=== PATIENT | male | born 1980 | race Caucasian/White ===

== ENCOUNTER 2017-10-21 13:00 | Outpatient (RCR) | payer OTHER, SELFPAY ==
--- NOTE | 2017-10-04 10:53 | HMH.PTOPEV ---
Rehab Outpatient Evaluation Rehab OP Evaluation Start: 10/04/17 10:22 Freq: Status: Active Protocol: Document 10/04/17 10:23 TFRY (Rec: 10/04/17 10:53 TFRY [id number]) Electronically Signed By Irma Cole OT 10/04/17 10:23 Outpatient Therapy Subjective History Subjective History THIS IS A 37 YEAR OLD RIGHT HANDED MALE REFERRED TO OCCUPATIONAL THERAPY FOR ROTATOR CUFF SPRAIN/TEAR. PATIENT REPORTS THE INJURY OCCURRED ON SEPTEMBER 15, 2017. PATIENT WAS INITIALLY SEEN IN [facility] WHO REFERRED THE PATIENT TO SEE DR. CHARLES. Chief Complaint Pain Stiff Symptom Type Ache Throb Sharp Dull Symptoms Relieved By Rest/Positioning Ice Symptoms Aggravated By Physical Activity Prior Functional Limitations None Current Functional Limitations Reaching Lifting Dressing Sleeping Symptom Description Constant but Variable Level of pain today (0-10) 3 Pain scale - at its best (0-10) 2 Pain scale - at its worst (0-10) 6 Shoulder/Elbow Eval Shoulder Objective Measurements Palpation Tenderness tenderness shoulder exam standard right tenderness over the bicipital tendon right shoulder exam standard Shoulder Palpation Findings Tenderness Shoulder ROM Right Shoulder ROM Limitations Pain Shoulder Abduction Active Range of 40 Motion (degrees) Shoulder Abduction Passive Range of 50 Motion (degrees) Shoulder Flexion Active Range of Motion 30 (degrees) Query Text: Shoulder Flexion Passive Range of Motion 40 (degrees) Shoulder External Rotation Active Range 20 of Motion (degrees) Shoulder External Rotation Passive Range 25 of Motion (degrees) Shoulder Internal Rotation Active Range 25 of Motion (degrees) Shoulder Internal Rotation Passive Range 35 of Motion (degrees) pain with active ROM shoulder exam right standard pain with passive ROM shoulder exam right standard decreased ROM shoulder exam standard right Shoulder MMT Shoulder Abduction Strength Grade 2 Poor Shoulder Extension Strength Grade 2 Poor Shoulder Flexion Strength Grade 2 Poor Shoulder Internal Rotation Strength
== END 2017-10-21 13:01 | disposition home or self-care (01) ==
LOC: OT 13:00
PROVIDERS: PCP Orthopaedic Surgery; Visit Provider Orthopaedic Surgery
DX: M25.511 Pain in right shoulder (principal)
CPT/HCPCS: 97014; 97033; 97110; 97165; G0283

== ENCOUNTER → 2017-10-25 09:45 | Outpatient (CLI) | payer OTHER, SELFPAY ==
--- NOTE | 2017-10-25 09:50 | MR_ITS ---
MR shoulder RT wo con COMPARISON: 09/15/2017 HISTORY: Right shoulder pain, pain when raising arm Right rotator cuff tear ORDERING PHYSICIAN: Jack Salas MD PATIENT AGE: 37 years TECHNIQUE: Routine multiplanar multiecho performed without contrast. FINDINGS: There is acromioclavicular arthropathy with hypertrophic changes of the acromioclavicular joint. Subacromial space however preserved There is thickening of the supraspinatus tendon consistent with tendinopathy/tendinosis. There is also mild thickening of the infraspinatus and subscapularis tendons. No evidence of rotator cuff tear. No obvious labral tear. Bicipital tendon is in place. No fracture or dislocation. IMPRESSION: 1. Tendinopathy/tendinosis of the supraspinatus, infraspinatus, and subscapularis tendons. 2. No evidence of rotator cuff tear.
--- NOTE | 2017-10-25 09:57 | XR_ITS ---
XR orbit bilateral min 4V HISTORY: History of metallic foreign body in the eyes. 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 IMPRESSION: No radio opaque orbital foreign body identified
== END ==
PROVIDERS: PCP Orthopaedic Surgery; Visit Provider Orthopaedic Surgery
DX: M25.511 Pain in right shoulder (principal); M67.911 Unspecified disorder of synovium and tendon, right shoulder
CPT/HCPCS: 70200; 73221

== ENCOUNTER 2023-09-22 18:55 | Emergency (ER) | payer BC, SELFPAY ==
[2023-09-22 19:07] VITALS: BP 160/110; PULSE 112; RESP 19; TEMP 36.7; O2SAT 98; BMI 25.3
--- NOTE | 2023-09-22 19:19 | ED_ITS ---
Discharge Plan Disposition Patient Disposition: Home, Self-Care Prescriptions Prescriptions: New valacyclovir [Valtrex] 1 gram tablet 1,000 mg PO Q8H 7 Days Qty: 21 0RF prednisone 20 mg tablet 60 mg PO DAILY 7 Days Qty: 21 0RF No Action benazepril 40 mg tablet PO metformin 500 mg tablet 500 mg PO BID oseltamivir [Tamiflu] 75 mg capsule 75 mg PO BID 5 Days Qty: 10 0RF Referrals Follow up/Referrals: Umesh Cornell II, MD [Primary Care Provider] - See instructions Activity Restrictions/Add. Instructions Additional Instructions/Restrictions: Your symptoms are consistent with a peripheral cranial nerve VII lesion on the left side of your face called Palmer's palsy. During waking hours I recommend that you get [id number] artificial tears to lubricate your eye and at night use artificial tears and tape your eyelid shut. Additionally please take your steroids and antiviral medications as discussed. If your symptoms worsen over 3 weeks or if you have incomplete recovery over 3 to 4 weeks please follow- up with your primary care doctor to consider alternative therapies such as botulinum toxin injections or selective surgical procedures which are very rare and unlikely to be necessary. Prognosis is good and approximately 85% of people in your situation should have complete recovery of your facial nerve function by 6 months. Clinical Impressions Clinical Impression: Left-sided Palmer's palsy Discharge ED Provider: Angelique [facility] Adult HPI General Chief complaint: Recheck/Abnormal Lab/Rx Stated complaint: facial numbness Time Seen by Provider: 09/22/23 19:05 Mode of Arrival: Family Vehicle Source of Information: Patient Limitations: No Limitations Description of Symptoms (Recalled from ER Triage Doc. by RN): 43 yo male presents with CC of right side lip/facial tingling onset yesterday evening. states that she came home this even @ 1800 and noticed the opposite side of his face not moving. Pat added that when he took a 'drink' he noticed drooling. PMH: HTN,DM. Patient chews tobacco, dips . Drinks etoh when outside working. Noncompliant with medications that he has been prescribed. Utilizes [facility] physicians for PCP. Afebrile. Denies recent illness, facial trauma, or recent dental needs/issues. History of Present Illness HPI narrative: Patient is a 43-year-old male presenting today with left-sided facial weakness which began yesterday. Denies any other symptoms other than left-sided facial weakness. Denies any numbness weakness or tingling in his arms or legs any changes in vision coordination etc. No history of any viral type symptoms specifically no vesicular lesions history of any recent herpetic syndrome or shingles etc. Does have a history of hypertension diabetes. Related Data Home Medications Medication Instructions Recorded Confirmed benazepril 40 mg tablet PO 05/21/19 05/21/19 metformin 500 mg tablet 500 mg PO BID 05/21/19 05/21/19 Previous Rx's Medication Instructions Recorded oseltamivir 75 mg capsule (Tamiflu) 75 mg PO BID 5 days #10 caps 05/21/19 prednisone 20 mg tablet 60 mg (3 x 20 mg) PO DAILY 7 days 09/22/23 #21 tabs valacyclovir 1 gram tablet 1,000 mg PO Q8H 7 days #21 tabs 09/22/23 (Valtrex) Allergies Allergy/AdvReac Type Severity Reaction Status Date / Time No Known Allergies Allergy Verified 05/21/19 13:31 [facility] Disclaimer: The information contained in this section may have been updated after the patient was seen, as this information can be updated by other users. Social History Smoking Status: Current every day smoker tobacco type: cigarettes packs per day: 1 alcohol intake: current substance use type: denies use current occupational status: employed Travel in the last 8 weeks: None household members: spouse and children housing: house ROS Obtained: Yes All systems reviewed & no additional complaints except as documented Physical Exam General General appearance: alert and in no apparent distress ENT ENT exam: Present normal exam and normal oropharynx Respiratory Respiratory exam: Present normal lung sounds bilaterally; Absent respiratory distress Cardiovascular Cardiovascular exam: Present regular rate and normal rhythm Neurological Exam Neurological exam: Present alert, oriented X3, CN II-XII intact (Patient has a normal cranial nerve exam aside from peripheral cranial nerve VII with near complete peripheral paralysis there is no central sparing of the forehead no other cranial nerve involvement) and normal gait; Absent motor sensory deficit Medical Decision Making Martin Inquiry Pt receiving controlled substance: No Vital Signs: 09/22/23 19:07 Temperature 98.0 F Temperature Source Oral Pulse Rate [Right Brachial] 112 H Respiratory Rate 19 Blood Pressure [Right Arm] 160/110 H Blood Pressure Mean [Right Arm] 126 Blood Pressure Source [Right Arm] Automatic Cuff Blood Pressure Position [Right Arm] Sitting 02 Sat by Pulse Oximetry 98 Oxygen Delivery Method Room Air Medical Decision Narrative: 43-year-old male presenting today with clinical evidence of a peripheral cranial nerve VII lesion on the left consistent with Palmer's palsy. He has no vesicular or active lesions. He has a normal neurologic exam aside from this. There is no central sparing this is not consistent with a central cause of his symptoms. There are no bilateral involvement. He has near complete paralysis but his prognosis is still good. He will be prescribed 60 mg of prednisone daily for the next week as well as valacyclovir over the next week. Additionally he is having significant difficulty due to the paralysis of closing his left eye he has no pain or significant symptoms in there at the moment to suggest any type of corneal abrasion but I advised that he take artificial tears [id number] daily and at night and at night also to tape his eye shut. He should expect complete resolution of his symptoms within 6 months however if he is not having any improvement in his symptoms I have advised that he follow-up with his primary care doctor to discuss other therapies such as botulinum toxin injections or other selective surgical interventions which should be very unlikely to be needed. This is not consistent with any other pathology at the moment and he was discharged in stable condition without any need for specific workup. Critical Care Critical Care Time Critical Care Time: No
[2023-09-22 19:30] VITALS: BP 116/110; PULSE 112; RESP 16; RESP 19; TEMP 36.7; O2SAT 98
== END 2023-09-22 19:30 | disposition home or self-care (01) ==
PROVIDERS: Emergency Provider Student in an Organized Health Care Education/Training Program; PCP Family Medicine
DX: G51.0 Bell's palsy (principal); I10 Essential (primary) hypertension; E11.9 Type 2 diabetes mellitus without complications; F17.210 Nicotine dependence, cigarettes, uncomplicated; Z79.84 Long term (current) use of oral hypoglycemic drugs
CPT/HCPCS: 99283